=== PATIENT | female | born 1995 | race Caucasian/White ===

== ENCOUNTER 2022-10-24 23:47 | Emergency (ER) | payer OTHER ==
[~2022-10-24] VITALS: Ht 154.9 cm; Wt 62.6 kg
[2022-10-25 00:14] VITALS: BP 119/78
--- NOTE | 2022-10-25 00:47 | NUR ---
Patient discharged to home in stable condition. Written and verbal after care instructions given. Patient verbalizes understanding of instruction.
== END 2022-10-25 00:48 | disposition home or self-care (01) ==
LOC: ER 23:50
DX: J39.2 Other diseases of pharynx (principal); T78.1XXA Other adverse food reactions, not elsewhere classified, initial encounter; Z91.018 Allergy to other foods; Z60.2 Problems related to living alone; X58.XXXA Exposure to other specified factors, initial encounter